=== PATIENT | female | born 1985 | race Caucasian/White ===

== ENCOUNTER 2019-11-28 08:35 | Outpatient (RCR) | payer BC, SELFPAY ==
[2019-10-25 09:55] VITALS: BP 126/75; PULSE 87
[2019-10-28 08:43] VITALS: BP 112/70; PULSE 106
[2019-10-31 09:00] VITALS: BP 100/72; PULSE 106
[2019-11-08 10:23] VITALS: BP 106/65; PULSE 96
[2019-11-14 07:53] VITALS: BP 112/69; PULSE 88
[2019-11-22 07:56] VITALS: BP 123/79; PULSE 98
--- NOTE | 2019-11-22 08:14 | PC.NURSE ---
BPP 03/17. patient has a doctors appointment this morning directly after US.
--- NOTE | ~2019-11-28 | US_ITS ---
US OB limited w BPP DATE: 11/28/2019 09:31 INDICATION: Gestational hypertension. Evaluate ONI and biophysical profile TECHNIQUE: Real-time and color flow imaging and Doppler analysis COMPARISON: 11/22/2019 limited obstetrical ultrasound with biophysical profile FINDINGS: Live kang intrauterine gestation, fetus in vertex presentation, longitudinal lie. Norm al amount of amniotic fluid. Amniotic fluid index measures 17.5 cm. (ONI 5th percentile: 7.5 cm; 95th percentile: 24.4 cm). Anterior placenta. BIOPHYSICAL PROFILE reported by golf technician: breathin out of 2 movement: 2 out of 2 tone: 2 out of 2 Amniotic fluid pocket: 2 out of 2 Total score: 8 out of 8 IMPRESSION: Normal biophysical profile score of 8 out of 8 Normal amniotic fluid index of 17.5 cm Reviewed, dictated and finalized at Location A. Reviewed, dictated and finalized at location A.
--- NOTE | ~2019-11-28 | US_ITS ---
EXAMINATION: US OB BPP wo non-stress DATE: 10/31/2019 09:31 CDT INDICATION: Gestational hypertension TECHNIQUE: Real-time transabdominal obstetric ultrasound. FINDINGS: No prior studies for comparison. There is a single living fetus in vertex presentation. The placenta is fundal/anterior without place nta previa. cardiac activity and movement is noted with a heart rate of 161 beats per minute. Biophysical profile: breathin of 2 movement: 2 of 2 tone: 2 of 2 Amniotic flud pocket: 2 of 2 Total score: 8 of 8 IMPRESSION: 1. Single living intrauterine in vertex presentation. 2: Total biophysical profile score of 8/8. Reviewed, dictated and finalized at location A.
--- NOTE | ~2019-11-28 | US_ITS ---
EXAMINATION: US OB limited w BPP DATE: 11/14/2019 08:21 INDICATION: Chronic hypertension. Third trimester. TECHNIQUE: Real-time pelvic ultrasound was performed. COMPARISON: Ultrasound 11/08/2019 FINDINGS: There is a single living fetus in breech presentation. The placenta is anterior. heart rate is 171 beats per minute (bpm). The amniotic fluid index is 16.6 cm, which is normal. Biophysical profile performed by the technologist: breathing (30 sec sustained breathing in 30 minutes): 2 out of 2 movement (3 gross body movements in 30 minutes): 2 out of 2 tone (one episode of egyigoo-qaftsycdq-bzeyayo limb movement): 2 out of 2 Amniotic fluid pocket (2 cm): 2 out of 2 Total score: 8 out of 8 IMPRESSION: 1. Single living fetus in breech presentation. 2. Biophysical profile 8 out of 8. Reviewed, dictated and finalized at location A.
--- NOTE | ~2019-11-28 | US_ITS ---
US OB limited w BPP DATE: 11/08/2019 10:05 INDICATION: Gestational hypertension TECHNIQUE: Routine imaging and Doppler analysis COMPARISON: 10/31/2019 obstetrical ultrasound with biophysical profile FINDINGS: Live single intrauterine gestation, fetus in vertex presentation, longitudinal lie. h eart rate of 142 bpm. Anterior placenta. Amniotic fluid index measures 16.6 cm, within normal range. (5th percentile ONI: 8.1 cm.) (95th percentile ONI: 24.8 cm) BIOPHYSICAL PROFILE reported by communications engineering technician: breathin out of 2 movement: 2 out of 2 tone: 2 out of 2 Amniotic fluid pocket: 2 out of 2 Total score: 8 out of 8 IMPRESSION: Normal biophysical profile score of 8 out of 8 Normal amniotic fluid index of 16.63 cm from Reviewed, dictated and finalized at Location A. Reviewed, dictated and finalized at location B.
--- NOTE | ~2019-11-28 | US_ITS ---
EXAMINATION: US OB limited w BPP DATE: 10/25/2019 10:18 INDICATION: Hypertension. Assess amniotic fluid index and biophysical profile. TECHNIQUE: Real-time pelvic ultrasound was performed. The interpreting radiologist was not present fo r the study. COMPARISON: 05/04/2019 FINDINGS: There is a single living fetus in vertex presentation. The placenta is anterior. heart rate is 145 beats per minute (bpm). Amniotic fluid index measures 8.5 cm which is between 2 and 3 standard d eviations below the mean (2.5th%: 7.7 cm, 5th%-95%: 8.6-24.2 cm at 32 weeks estimated gestational age ) Biophysical profile performed by the technologist: breathing (30 sec sustained breathing in 30 minutes): 2 out of 2 movement (3 gross body movements in 30 minutes): 2 out of 2 tone (one episode of fkqilrc-luizpgkbp-tybxjgs limb movement): 2 out of 2 Amniotic fluid pocket (2 cm): 2 out of 2 Total score: 8 out of 8 IMPRESSION: 1. Single living fetus in vertex presentation with heart rate of 145 bpm. 2. Biophysical profile 8 out of 8. 3. Amniotic fluid index of 8.5 cm which is between 2 and 3 standard deviations below the mean. Correl ate for leaking fluids. Reviewed, dictated and finalized at location A. IMPRESSION: 1. Single living fetus in vertex presentation with heart rate of 145 bpm. 2. Biophysical profile 8 out of 8. 3. Amniotic fluid index of 8.5 cm which is between 2 and 3 standard deviations below the mean. Correlate for leaking fluids.
--- NOTE | ~2019-11-28 | US_ITS ---
EXAMINATION: US OB limited w BPP DATE: 11/22/2019 08:25 INDICATION: Chronic hypertension, third trimester TECHNIQUE: Real-time pelvic ultrasound was performed. The interpreting radiologist was not present fo r the study. COMPARISON: 11/14/2019 FINDINGS: There is a single living fetus in breech presentation. The placenta is anterior. heart rate is 144 beats per minute (bpm). The amniotic fluid index is 16.7 cm which is normal Biophysical profile performed by the technologist: breathing (30 sec sustained breathing in 30 minutes): 2 out of 2 movement (3 gross body movements in 30 minutes): 2 out of 2 tone (one episode of jkswkat-qsrwikzku-iyqkgvs limb movement): 2 out of 2 Amniotic fluid pocket (2 cm): 2 out of 2 Total score: 8 out of 8 IMPRESSION: 1. Single living fetus in breech presentation. 2. Biophysical profile 8 out of 8. 3. Normal amniotic fluid index. Reviewed, dictated and finalized at location B.
[2019-11-28 09:09] VITALS: BP 113/76; PULSE 92
== END 2019-12-12 08:54 | disposition home or self-care (01) ==
LOC: ANHOBOP 08:35
PROVIDERS: PCP Internal Medicine; Visit Provider Obstetrics & Gynecology
DX: O16.3 Unspecified maternal hypertension, third trimester (principal); Z3A.32 32 weeks gestation of pregnancy; Z3A.33 33 weeks gestation of pregnancy; Z3A.34 34 weeks gestation of pregnancy; Z3A.35 35 weeks gestation of pregnancy; Z3A.36 36 weeks gestation of pregnancy; Z3A.37 37 weeks gestation of pregnancy
CPT/HCPCS: 59025; 76815; 76819

== ENCOUNTER 2019-12-05 17:57 | Inpatient (IN) | payer BC, SELFPAY ==
[2019-12-05] VITALS (14 sets, daily range): BP systolic 110–137; BP diastolic 67–92; PULSE 72–96; TEMP 36.8; BMI 38.7
[2019-12-05] MEDS: DINOPROSTONE 10 MG VAG INSERT VAGINAL (19:32)
[2019-12-05 19:49] LABS: Basophils Percent Auto 0.3 % (0.2-1.2); Eosinophils Absolute Auto 0.1 K/mm3 (0-0.3); Eosinophils Percent Auto 1.4 % (0-4.4); Hematocrit 33.2 % (37.0-47.0); Hemoglobin 10.5 g/dL (12.0-15.0); Immature Granulocyte Absolute 0.04 K/mm3 (0.00-0.031); Immature Granulocyte Percent A 0.4 % (0-0.5); Lymphocytes Absolute Auto 1.91 K/mm3 (0.9-3.2); Lymphocytes Percent Auto 20.6 % (18.3-44.2); Mean Corpuscular HGB Conc 31.6 g/dl (32-36); Mean Corpuscular Hemoglobin 25.2 pg (26-34); Mean Corpuscular Volume 79.6 fl (80-100); Mean Platelet Volume 11.1 fl (7.4-10.4); Monocytes Absolute Auto 0.5 K/mm3 (0.1-0.6); Monocytes Percent Auto 5.1 % (2.6-8.5); Neutrophils Absolute Auto 6.7 K/mm3 (1.3-6.7); Neutrophils Percent Auto 72.2 % (45.5-73.1); Platelet Count Result 234 k/mm3 (150-375); Red Blood Count 4.17 M/mm3 (4.2-5.4); Red Cell Distribution Width 13.3 % (11.5-14.5); White Blood Count 9.3 K/mm3 (4.5-10.0)
[2019-12-05 20:42] LABS: HIV 1/2 Ab P24 Ag Result Negative (Negative)
--- NOTE | 2019-12-05 20:46 | LDADM ---
This patient, Sejal Lopez, was admitted to Labor/Delivery/Recovery 109 on 12/05/19 at 17:57. Plans for labor, pain management and were discussed with patient. Patient/family oriented to hospital policies and general routines including ID bracelet, bed and alarms, visiting hours, pain management, procedures, bathroom and other care routines, personal items, smoking policy, room service/diet and guest tray routines, security routines, and visiting hours. Patient/Family are encouraged to report perceived risks to care and to ask questions if they do not understand what they are told or what they should do. See OBIX for further documentation.
[2019-12-05 21:23] LABS: Hepatitis B Surface Antigen Negative (Negative)
--- NOTE | 2019-12-05 21:33 | WPDANESEPP ---
Anes - Eval Pre Procedure Procedure: LAbor epidural Date/Time: 12/05/19 21:33 Surgeon: Abdominal pain with contractions Pre Op Diagnosis: Induction of Labor Patient Data Age: 34 Gender: F Height: 5 ft 6 in Weight: 109 kg Last Vital Signs Temp 98.3 F 12/05/19 21:16 Pulse 76 12/05/19 21:31 BP 122/74 12/05/19 21:31 Allergies Allergy/AdvReac Type Severity Reaction Status Date / Time PCN Allergy Unknown AN Uncoded 05/24/13 14:55 INFANT Home Medications Medication Instructions Recorded Confirmed Type vits 75-iron 28 mg-folic pkg PO 06/28/19 10/14/19 History acid 800 mcg-omega3 440 mg oral pack calcium carbonate 600 mg (1,500 cap PO 10/14/19 10/14/19 History mg)-vitamin D3 500 unit capsule labetalol 100 mg tablet 100 mg PO Q12H #180 tablet 10/14/19 10/14/19 Rx cholecalciferol (vitamin D3) 25 mcg PO DAILY 11/19/19 11/19/19 History [Vitamin D3] Laboratory Tests 12/05/19 12/05/19 12/05/19 19:41 19:41 19:41 WBC 9.3 K/mm3 K/mm3 (4.5-10.0) RBC 4.17 M/mm3 L M/mm3 (4.2-5.4) Hgb 10.5 g/dL L g/dL (12.0-15.0) Hct 33.2 % L % (37.0-47.0) MCV 79.6 fl L fl (80-100) MCH 25.2 pg L pg (26-34) MCHC 31.6 g/dl L g/dl (32-36) RDW 13.3 % % (11.5-14.5) Plt Count 234 k/mm3 k/mm3 (150-375) MPV 11.1 fl H fl (7.4-10.4) Immature Gran % (Auto) 0.4 % % (0-0.5) Neut % (Auto) 72.2 % % (45.5-73.1) Lymph % (Auto) 20.6 % % (18.3-44.2) [place] % (Auto) 5.1 % % (2.6-8.5) Eos % (Auto) 1.4 % % (0-4.4) Baso % (Auto) 0.3 % % (0.2-1.2) Lymph # (Auto) 1.91 K/mm3 K/mm3 (0.9-3.2) [place] # (Auto) 0.5 K/mm3 K/mm3 (0.1-0.6) Eos # (Auto) 0.1 K/mm3 K/mm3 (0-0.3) Baso # (Auto) 0.0 K/mm3 K/mm3 (0.0-0.1) Abs Immat Gran (auto) 0.04 K/mm3 H K/mm3 (0.00-0.031) Absolute Neuts (auto) 6.7 K/mm3 K/mm3 (1.3-6.7) Absolute Nucleated RBC 0.0 K/mm3 K/mm3 (0.0-0.012) Nucleated RBC % 0.0 % % (0.0-0.2) RPR Pending Hep Bs Antigen HIV 1&2 Ab/P24 Ag 4thGn Negative (Negative) Blood Type Antibody Screen 12/05/19 12/05/19 19:41 19:42 WBC RBC Hgb Hct MCV MCH MCHC RDW Plt Count MPV Immature Gran % (Auto) Neut % (Auto) Lymph % (Auto) [place] % (Auto) Eos % (Auto) Baso % (Auto) Lymph # (Auto) [place] # (Auto) Eos # (Auto) Baso # (Auto) Abs Immat Gran (auto) Absolute Neuts (auto) Absolute Nucleated RBC Nucleated RBC % RPR Hep Bs Antigen Negative (Negative) HIV 1&2 Ab/P24 Ag 4thGn Blood Type O Positive Antibody Screen Negative Patient hx anesthesia problems: none Family hx anesthesia problems: none PMFSH Past Medical History Medical History Acid reflux HPV (human papilloma virus) anogenital infection Hypertension Hypertension affecting in third trimester Surgical History Surgical History H/O LEEP [place] teeth removed Family History Family History Grandparent Diabetes mellitus Hypertension Cerebrovascular accident Family history of lung cancer Family history of Hodgkin's lymphoma Mother Hypertension Other Family history of malignant neoplasm of breast Social History Social History Smoking status: Never smoker Second hand tobacco smoke exposure: No Alcohol intake: former [place]
[2019-12-06] VITALS (53 sets, daily range): BP systolic 61–138; BP diastolic 19–93; PULSE 42–90; RESP 12–19; TEMP 36.4–37.2; O2SAT 94–99
[2019-12-06 07:30] LABS: Rapid Plasma Reagin Non-Reactive (NonReactive)
[2019-12-06] MEDS: VALACYCLOVIR HCL 500 MG TABLET 2000 MG PO ×2 (08:11→21:03)
[2019-12-06] MEDS: LABETALOL HCL 100 MG TABLET PO ×2 (08:13→21:06)
--- NOTE | 2019-12-06 09:52 | PM.IMHP ---
H&P: HPI History of Present Illness Chief complaint: Induction of Labor Narrative: Sejal Lopez is a 34 year old female at 38 weeks by LMP. EDC 12/19/19. Presents for induction of labor due to chronic hypertension. LMP 03/14/19 EDC 12/19/19 U/S on 05/04/20 - [id number]- EDC 12/24/19. PNC significant for chronic hypertension well controlled with Labetalol 100mg q 12. Has not had medication changed during . She has reassuring surveillance. She denies headache, scotomata or RUQ pain. OB labs: O+, h/h-, CF-neg, UA-neg, HIV neg, HepBSag-neg, Clark-Im, TSH-nl, Rub-Imm, Vit D 25, HepCab- neg, GBS neg, initial 24 hr urine- 174mg, Materna 21- nl, Hgbelec- nl, glucola-135, normal 3 hour, third trimester HIV neg. Review of Systems Review of Systems: All systems reviewed & are unremarkable except as noted in HPI and below Constitutional: Constitutional: Reports no additional constitutional complaints and Denies headache(s) Eyes: Eyes: Denies spots in vision ENT: Reports system reviewed and no additional complaints, except as documented and Denies headache(s) Cardiovascular: Cardiovascular: Denies chest pain and Denies dyspnea Respiratory: Respiratory: Denies dyspnea Gastrointestinal: Gastrointestinal: Reports no additional gastrointestinal complaints Genitourinary: Genitourinary: Reports amenorrhea Musculoskeletal: Musculoskeletal: Reports no additional musculoskeletal complaints Integumentary/Breasts: Skin/Breast: Denies breast mass and Denies rash Neurologic: Denies headache(s) Psychiatric: Psychiatric: Reports no additional psychiatric complaints [facility] Past Medical History Medical History Acid reflux Chronic hypertension in obstetric context in third trimester History of induction of labor HPV (human papilloma virus) anogenital infection Hypertension Hypertension affecting in third trimester Surgical History Surgical History H/O LEEP [place] teeth removed Family History Family History Grandparent Diabetes mellitus Hypertension Cerebrovascular accident Family history of lung cancer Family history of Hodgkin's lymphoma Mother Hypertension Other Family history of malignant neoplasm of breast Social History Social History Smoking status: Never smoker Second hand tobacco smoke exposure: No Alcohol intake: former Substance use: never Spiritual care concerns: No Meds Home Medications and Allergies Home Medications Medication Instructions Recorded Confirmed Type vits 75-iron 28 mg-folic pkg PO 06/28/19 10/14/19 History acid 800 mcg-omega3 440 mg oral pack calcium carbonate 600 mg (1,500 cap PO 10/14/19 10/14/19 History mg)-vitamin D3 500 unit capsule labetalol 100 mg tablet 100 mg PO Q12H #180 tablet 10/14/19 10/14/19 Rx cholecalciferol (vitamin D3) 25 mcg PO DAILY 11/19/19 11/19/19 History [Vitamin D3] Allergies Allergy/AdvReac Type Severity Reaction Status Date / Time PCN Allergy Unknown AN Uncoded 05/24/13 14:55 INFANT Vital Signs Vital Signs - 24 hr 12/05/19 18:27 12/05/19 18:30 12/05/19 18:46 Temperature Pulse Rate 91 89 83 Blood Pressure 123/86 134/80 120/67 12/05/19 19:00 12/05/19 19:15 12/05/19 19:30 Temperature Pulse Rate 96 92 80 Blood Pressure 127/82 132/81 131/87 12/05/19 19:46 12/05/19 20:01 12/05/19 20:16 Temperature Pulse Rate 89 74 89 Blood Pressure 134/79 137/75 134/80 12/05/19 20:31 12/05/19 20:46 12/05/19 21:01 Temperature Pulse Rate 81 88 75 Blood Pressure 131/71 110/92 H 123/73 12/05/19 21:16 12/05/19 21:31 12/06/19 01:18 Temperature 98.3 F Pulse Rate 72 76 86 Blood Pressure 127/70 122/74 121/68 12/06/19 05:10 12/06/19 07:45 12/05
--- NOTE | 2019-12-06 10:06 | PM.OBPNVD ---
OB - PN: Subj Subjective Date/time seen: 12/06/19 10:06 tracing Cat 1. Cervix closed thick. Presenting part not palpated. Bedside ultrasound confirmed breech. She was informed of option of external cephalic version, the method, risk benefits then if successful then induction which may take several days and risk of fetus turing back breech. Risk of failure to progress in labor and risk of cesearean. Risk of cesearean section delivery discussed. She desires primary cesearean section for breech presentation. OB - PN: Obj Data Labs CBC & Chem 7: 12/05/19 19:41 Labs: Laboratory Results - last 24 hr 12/05/19 12/05/19 12/05/19 19:41 19:41 19:41 WBC 9.3 RBC 4.17 L Hgb 10.5 L Hct 33.2 L MCV 79.6 L MCH 25.2 L MCHC 31.6 L RDW 13.3 Plt Count 234 MPV 11.1 H Immature Gran % (Auto) 0.4 Neut % (Auto) 72.2 Lymph % (Auto) 20.6 [place] % (Auto) 5.1 Eos % (Auto) 1.4 Baso % (Auto) 0.3 Lymph # (Auto) 1.91 [place] # (Auto) 0.5 Eos # (Auto) 0.1 Baso # (Auto) 0.0 Abs Immat Gran (auto) 0.04 H Absolute Neuts (auto) 6.7 Absolute Nucleated RBC 0.0 Nucleated RBC % 0.0 RPR Non-reactive Hep Bs Antigen HIV 1&2 Ab/P24 Ag 4thGn Negative Blood Type Antibody Screen 12/05/19 12/05/19 19:41 19:42 WBC RBC Hgb Hct MCV MCH MCHC RDW Plt Count MPV Immature Gran % (Auto) Neut % (Auto) Lymph % (Auto) [place] % (Auto) Eos % (Auto) Baso % (Auto) Lymph # (Auto) [place] # (Auto) Eos # (Auto) Baso # (Auto) Abs Immat Gran (auto) Absolute Neuts (auto) Absolute Nucleated RBC Nucleated RBC % RPR Hep Bs Antigen Negative HIV 1&2 Ab/P24 Ag 4thGn Blood Type O Positive Antibody Screen Negative OB - PN A/P Time Spent With Patient Time: Total time spent is greater than 50% in coordination of care (as documented) at patient's floor/unit and/or counseling patient:
[2019-12-06] MEDS: LACTATED RINGERS 1,000 ML 125 ML IV CONT (10:11)
--- NOTE | 2019-12-06 10:56 | WPDANESEPPF ---
Anes - Initial Pre Proc Eval Date/Time: 12/06/19 10:56 Surgeon: Leon Mistry MD Pre Op Diagnosis: Induction of Labor Patient Data Age: 34 Gender: F Height: 5 ft 6 in Weight: 109 kg Last Vital Signs Temp 36.4 C 12/06/19 07:45 Pulse 81 12/06/19 08:46 BP 127/88 12/06/19 08:46 Allergies Allergy/AdvReac Type Severity Reaction Status Date / Time PCN Allergy Unknown AN Uncoded 05/24/13 14:55 Home Medications Medication Instructions Recorded Confirmed Type vits 75-iron 28 mg-folic pkg PO 06/28/19 10/14/19 History acid 800 mcg-omega3 440 mg oral pack calcium carbonate 600 mg (1,500 cap PO 10/14/19 10/14/19 History mg)-vitamin D3 500 unit capsule labetalol 100 mg tablet 100 mg PO Q12H #180 tablet 10/14/19 10/14/19 Rx cholecalciferol (vitamin D3) 25 mcg PO DAILY 11/19/19 11/19/19 History [Vitamin D3] Laboratory Tests 12/05/19 12/05/19 12/05/19 19:41 19:41 19:41 WBC 9.3 K/mm3 K/mm3 (4.5-10.0) RBC 4.17 M/mm3 L M/mm3 (4.2-5.4) Hgb 10.5 g/dL L g/dL (12.0-15.0) Hct 33.2 % L % (37.0-47.0) MCV 79.6 fl L fl (80-100) MCH 25.2 pg L pg (26-34) MCHC 31.6 g/dl L g/dl (32-36) RDW 13.3 % % (11.5-14.5) Plt Count 234 k/mm3 k/mm3 (150-375) MPV 11.1 fl H fl (7.4-10.4) Immature Gran % (Auto) 0.4 % % (0-0.5) Neut % (Auto) 72.2 % % (45.5-73.1) Lymph % (Auto) 20.6 % % (18.3-44.2) [place] % (Auto) 5.1 % % (2.6-8.5) Eos % (Auto) 1.4 % % (0-4.4) Baso % (Auto) 0.3 % % (0.2-1.2) Lymph # (Auto) 1.91 K/mm3 K/mm3 (0.9-3.2) [place] # (Auto) 0.5 K/mm3 K/mm3 (0.1-0.6) Eos # (Auto) 0.1 K/mm3 K/mm3 (0-0.3) Baso # (Auto) 0.0 K/mm3 K/mm3 (0.0-0.1) Abs Immat Gran (auto) 0.04 K/mm3 H K/mm3 (0.00-0.031) Absolute Neuts (auto) 6.7 K/mm3 K/mm3 (1.3-6.7) Absolute Nucleated RBC 0.0 K/mm3 K/mm3 (0.0-0.012) Nucleated RBC % 0.0 % % (0.0-0.2) RPR Non-reactive (NonReactive) Hep Bs Antigen HIV 1&2 Ab/P24 Ag 4thGn Negative (Negative) Blood Type Antibody Screen 12/05/19 12/05/19 19:41 19:42 WBC RBC Hgb Hct MCV MCH MCHC RDW Plt Count MPV Immature Gran % (Auto) Neut % (Auto) Lymph % (Auto) [place] % (Auto) Eos % (Auto) Baso % (Auto) Lymph # (Auto) [place] # (Auto) Eos # (Auto) Baso # (Auto) Abs Immat Gran (auto) Absolute Neuts (auto) Absolute Nucleated RBC Nucleated RBC % RPR Hep Bs Antigen Negative (Negative) HIV 1&2 Ab/P24 Ag 4thGn Blood Type O Positive Antibody Screen Negative Patient hx anesthesia problems: none Family hx anesthesia problems: none PMFSH Past Medical History Medical History Acid reflux Chronic hypertension in obstetric context in third trimester History of induction of labor HPV (human papilloma virus) anogenital infection Hypertension Hypertension affecting in third trimester Surgical History Surgical History H/O LEEP [place] teeth removed Family History Family History Grandparent Diabetes mellitus Hypertension Cerebrovascular accident Family history of lung cancer Family history of Hodgkin's lymphoma Mother Hypertension Other Family history of malignant neoplasm of breast Social History Social History Smoking statu
--- NOTE | 2019-12-06 12:50 | P.PNOB_ITS ---
OB - PN: Subj Subjective Date/time seen: 12/06/19 OB - PN: Obj Data Labs CBC & Chem 7: 12/05/19 19:41 Labs: Laboratory Results - last 24 hr 12/05/19 12/05/19 12/05/19 19:41 19:41 19:41 WBC 9.3 RBC 4.17 L Hgb 10.5 L Hct 33.2 L MCV 79.6 L MCH 25.2 L MCHC 31.6 L RDW 13.3 Plt Count 234 MPV 11.1 H Immature Gran % (Auto) 0.4 Neut % (Auto) 72.2 Lymph % (Auto) 20.6 [place] % (Auto) 5.1 Eos % (Auto) 1.4 Baso % (Auto) 0.3 Lymph # (Auto) 1.91 [place] # (Auto) 0.5 Eos # (Auto) 0.1 Baso # (Auto) 0.0 Abs Immat Gran (auto) 0.04 H Absolute Neuts (auto) 6.7 Absolute Nucleated RBC 0.0 Nucleated RBC % 0.0 RPR Non-reactive Hep Bs Antigen HIV 1&2 Ab/P24 Ag 4thGn Negative Blood Type Antibody Screen 12/05/19 12/05/19 19:41 19:42 WBC RBC Hgb Hct MCV MCH MCHC RDW Plt Count MPV Immature Gran % (Auto) Neut % (Auto) Lymph % (Auto) [place] % (Auto) Eos % (Auto) Baso % (Auto) Lymph # (Auto) [place] # (Auto) Eos # (Auto) Baso # (Auto) Abs Immat Gran (auto) Absolute Neuts (auto) Absolute Nucleated RBC Nucleated RBC % RPR Hep Bs Antigen Negative HIV 1&2 Ab/P24 Ag 4thGn Blood Type O Positive Antibody Screen Negative OB - PN A/P Time Spent With Patient Time: Total time spent is greater than 50% in coordination of care (as documented) at patient's floor/unit and/or counseling patient:
--- NOTE | 2019-12-06 12:52 | PM.PROC ---
Procedure Note - Detailed Date of procedure: 12/06/19 Pre-op diagnosis: Induction of Labor Post-op diagnosis: same Procedure performed: Primary low transverse cesearean section. Primary diagnosis 1. Breech presentation 2. Chronic hypertension. Description of procedure: After informed consent was obtained patient was taken to the operating room and adequate spinal anesthesia was administered. She was placed in supine position and prepped and draped in sterile fashion. heart tones were auscultated prior to a drape. Attention was turned to the abdomen and a Pfannenstiel skin incision was made. The subcutaneous tissue was dissected with scalpel and cautery. The fascia was incised in the midline and extended bilaterally. The fascia was from rectus muscle superiorly and inferiorly bluntly and sharply. The midline was identified the midline was entered bluntly. The pelvic organs were visualized. The lower uterine segment and vesico-uterine peritoneum was visualized. The bladder was dissected from the lower uterine segment. A bladder flap was made. A low-transverse uterine incision was made and was extended bluntly. The amniotic cavity was entered. A large amount of clear fluid was noted. The feet were presented and grasped and the legs were delivered, the arms were then delivered in pinard fashion. Loose nuchal cord manually reduced and infants head was delivered in flexed position. The infant was vigorously crying upon delivery. The cord was doubly clamped and cut and the was handed to nursery staff in attendance. Cord segment was obtained for cord gases. Cord blood was obtained. The placenta was removed manually. The uterine cavity was sponge curetted. The uterus was noted to have good tone. The uterus was exteriorized the incision of the uterus was closed in a running locking fashion with 0 Vicryl and a 2nd umbricating stitch of 0 Vicryl. Hemostasis was noted. The posterior cul-de-sac was irrigated. Uterus was placed back into the abdomen. The paracolic gutters were irrigated the uterine incision was inspected again and noted to be hemostatic. Interceed adhesion barrier was placed at the lower uterine segment and anterior uterus. There was good approximation of the muscles midline. The fascia was closed in a running fashion with 0 Vicryl with 2 sutures. The subcutaneous tissue was irrigated. Hemostasis obtained with cautery. The skin incision was closed with 4 O Vicryl on a Jay needle. Dermabond was placed. Hemostasis was noted. The uterus was firm at -1 umbilicus. The QBL was 875cc. Sponge count was correct x3. The patient tolerated procedure well and was taken to recovery in stable condition. Anesthesia: spinal Surgeon: Leon Mistry MD Estimated blood loss (mL): 875 Drains: No Packing: No Pathology: none sent Complications: No immediate complications Condition: stable Disposition: floor (Recovery)
[2019-12-06] MEDS: MORPHINE SULFATE 2 MG/ML INJ 3 MG IV PUSH (13:23)
[2019-12-06] MEDS: OXYTOCIN 30 UNITS/NS 500 ML 30 UNITS/500 ML BAG 125 UNITS IV CONT (13:24)
[2019-12-06] MEDS: KETOROLAC 30 MG/ML VIAL (*BKC) IV PUSH (14:08)
[2019-12-06] MEDS: DEXTROSE 5%/0.45% SOD CHL 1,000 ML 125 ML IV CONT (18:44)
--- NOTE | 2019-12-06 19:20 | OBPPTRN ---
Patient transferred to post room # 281 via stretcher. Support person present. Oriented to unit, room, information board, rooming in, admission packet and security measures. Patient verbalizes understanding.
[2019-12-06] MEDS: IBUPROFEN 600 MG TABLET PO (21:54)
[2019-12-07] VITALS (7 sets, daily range): BP systolic 101–127; BP diastolic 55–69; PULSE 56–68; RESP 12–18; TEMP 36.6–37; O2SAT 96–99
[2019-12-07] MEDS: DEXTROSE 5%/0.45% SOD CHL 1,000 ML 125 ML IV CONT (03:00)
[2019-12-07] MEDS: IBUPROFEN 600 MG TABLET PO ×3 (05:12→19:46)
[2019-12-07 06:12] LABS: Basophils Percent Auto 0.2 % (0.2-1.2); Eosinophils Percent Auto 0.1 % (0-4.4); Hematocrit 29.7 % (37.0-47.0); Hemoglobin 9.4 g/dL (12.0-15.0); Immature Granulocyte Absolute 0.07 K/mm3 (0.00-0.031); Immature Granulocyte Percent A 0.5 % (0-0.5); Lymphocytes Absolute Auto 1.77 K/mm3 (0.9-3.2); Lymphocytes Percent Auto 12.7 % (18.3-44.2); Mean Corpuscular HGB Conc 31.6 g/dl (32-36); Mean Corpuscular Hemoglobin 25.2 pg (26-34); Mean Corpuscular Volume 79.6 fl (80-100); Mean Platelet Volume 11.6 fl (7.4-10.4); Monocytes Absolute Auto 0.8 K/mm3 (0.1-0.6); Monocytes Percent Auto 5.5 % (2.6-8.5); Neutrophils Absolute Auto 11.3 K/mm3 (1.3-6.7); Platelet Count Result 229 k/mm3 (150-375); Red Blood Count 3.73 M/mm3 (4.2-5.4); White Blood Count 13.9 K/mm3 (4.5-10.0)
--- NOTE | 2019-12-07 08:00 | PC.NURSE ---
PT introductions made and plan of care discussed per post op c section, pain management, breast feeding, daily care activities. PT verbalized understanding of such care.
[2019-12-07] MEDS: SIMETHICONE 80 MG TAB.CHEW PO ×3 (08:35→16:51)
[2019-12-07] MEDS: POLYSACCHARIDE IRON COMPLEX 150 MG CAPSULE PO ×2 (08:36→16:51)
[2019-12-07] MEDS: DOCUSATE SODIUM 100 MG CAPSULE PO ×2 (08:36→16:51)
[2019-12-07] MEDS: MULTIVIT/MIN/PREN/FOL AC/IRON TABLET 1 TAB PO (08:36)
[2019-12-07] MEDS: LABETALOL HCL 100 MG TABLET PO (08:36)
--- NOTE | 2019-12-07 08:51 | P.PNOB_ITS ---
OB - PN: Subj Subjective Date/time seen: 12/07/19 08:51 She reports adequate pain control. She has ambulated to restroom. Did well. No lightheadedness or dizziness. Positive flatus. No leg pain. . OB - PN: Obj Data Labs CBC & Chem 7: 12/07/19 05:09 Labs: Laboratory Results - last 24 hr 12/07/19 05:09 WBC 13.9 H RBC 3.73 L Hgb 9.4 L Hct 29.7 L MCV 79.6 L MCH 25.2 L MCHC 31.6 L RDW 13.0 Plt Count 229 MPV 11.6 H Immature Gran % (Auto) 0.5 Neut % (Auto) 81.0 H Lymph % (Auto) 12.7 L Spencer % (Auto) 5.5 Eos % (Auto) 0.1 Baso % (Auto) 0.2 Lymph # (Auto) 1.77 Spencer # (Auto) 0.8 H Eos # (Auto) 0.0 Baso # (Auto) 0.0 Abs Immat Gran (auto) 0.07 H Absolute Neuts (auto) 11.3 H Absolute Nucleated RBC 0.0 Nucleated RBC % 0.0 OB - PN A/P Assessment and Plan (1) Status post section: Code(s): Z98.891 - History of uterine scar from previous surgery Status: Acute Assessment and Plan: POD1. Doing well. Routine post op care. Time Spent With Patient Time: Total time spent is greater than 50% in coordination of care (as documented) at patient's floor/unit and/or counseling patient: Exam Const: General: comfortable and no acute distress Resp: Effort & Inspection: normal respiratory effort Auscultation: clear to auscultation bilaterally Cardio: Rate: regular rate GI: Other: decreased bowel sounds, mildly distended, incision no drainage or erythema, intact, fundus firm appropriate tender, -2umb. Psych: Mental Status: mental status grossly normal Affect: normal affect
--- NOTE | 2019-12-07 09:00 | PC.NURSE ---
Consulted with patient, mother reports infant was up and fussy during the night. Mother states she is unsure if has a correct latch, both nipples are sore during nursing and nipple was misshaped when released latch. Reviewed feeding cues, frequencies, duration of feedings, feeding elimination flow sheet, and signs of adequate intake. Demonstrated stimulation techniques to wake infant for feeding. Assisted with to breast. Reviewed positioning/alignment in cross cradle, holding breast in U hold and guided asymmetrical latch on. Discussed rational for each. was unable to latch correctly. made several eager attempts without a successful latch. Attempt for 15 minutes. Offered and explained a nipple shield. Mother is willing to attempt latch using shield. Discussed nipple shield precautions and possible complications. Instructions given on application and cleaning of shield. Patient able to return demonstration on proper application of shield. Discussed the need to initiate pumping if infant continues to nurse with the shield. Patient verbalizes understanding. With shield in place, infant was able to latch deeply. Reviewed signs of a correct latch, effective nursing and suck swallow ratio. nursed eagerly with steady draws for short bursts followed with long pausing. Infant was able to maintain latch without discomfort to mother. Nipple care reviewed. Advised to stimulate to keep awake and nursing for increased intake and stimulation of milk supply. Small amount of colostrum noted to shield. Parents are concerned with infant feeding states and have questioned supplementation, reviewed it is parents choice at this time. Infant is WNL for output, weight and jaundice. Parents wish to have infant supplemented. Instructed mother to call out for RN assistance if she is unable to latch for feeding or she has discomfort with nursing. Instructed feeding should be initiated three hours from start of last feeding or if feeding cues are noted before. Mother voiced understanding of information shared.
--- NOTE | 2019-12-07 11:16 | WPDANLDPN2 ---
Anes-Prog Note L&D Date/Time: 12/07/19 11:16 Comfortable throughout: section Neuraxial method: spinal Epidural/Spinal procedure site: clean & non-tender Neuro status: Neuro function grossly intact. Cardiovascular status: normal Respiratory status: normal Airway patency: baseline Mental status: baseline Post-Op hydration status: normal Vital Signs: Last Vital Signs Temp 36.8 C 12/07/19 08:40 Pulse 68 12/07/19 10:30 Resp 18 12/07/19 10:30 BP 123/68 12/07/19 10:30 Pulse Ox 97 12/07/19 10:30 Pain score (VAS): 0/10. Patient resting in bed at time of assessment, appears comfortable. Support person at bedside. I/O: Intake & Output 12/06/19 12/07/19 12/07/19 23:59 07:59 15:59 Intake Total 800 2100 Output Total 150 2000 275 Balance 650 100 -275 Post-procedural complaints: none Patient feedback: Patient satisfied with anesthetic care.
--- NOTE | 2019-12-07 11:17 | WPDANLDNPN2 ---
Anes-Prog Note L&D-Neuraxial Date/Time: 12/07/19 11:17 Neuraxial medications: intrathecal PF morphine Opiod-related complaints: none Patient feedback: Patient satisfied with post-operative pain management.
--- NOTE | 2019-12-07 13:00 | PC.NURSE ---
Mother called out for assist with feeding. Demonstrated stimulation techniques to wake for feeding. Assisted with to breast. Reviewed positioning/alignment in cross cradle, holding breast in U hold and guided asymmetrical latch on. Discussed rational for each. Infant was unable to latch correctly using nipple shield. Discussed the need to initiate pumping if infant continues to nurse with the shield. Patient verbalizes understanding. With shield in place, was able to latch deeply. Reviewed signs of a correct latch, effective nursing and suck swallow ratio. Infant nursed eagerly with steady draws for short bursts followed with long pausing. Infant was able to maintain latch without discomfort to mother. Nipple care reviewed. Advised to stimulate to keep infant awake and nursing for increased intake and stimulation of milk supply. Small amount of colostrum noted to shield.
--- NOTE | 2019-12-07 13:45 | PC.NURSE ---
Breast pump provided due to ineffective feeding/nipple shield use. Instructions given on breast pump care and usage, pumping schedule, nipple care, and collection and storage of breast milk. Encouraged [id number], breast massage and manual expression to stimulate supply. Assessed patient for correct flange size, placement and draw. Patient verbalizes and demonstrates understanding of instructions.
[2019-12-07] MEDS: ACETAMINOPHEN 325 MG TABLET 650 MG PO (16:51)
--- NOTE | 2019-12-07 20:31 | PC.NURSE ---
2020 Dr Mistry notified of Pt's BP 0f 101/55. Orders received to hold Pm dose of Labetalol .
[2019-12-08] MEDS: IBUPROFEN 600 MG TABLET PO (05:04)
[2019-12-08 08:05] VITALS: BP 128/82; PULSE 77; RESP 18; TEMP 37.2; O2SAT 96
[2019-12-08 09:54] VITALS: PULSE 88
[2019-12-08] MEDS: DOCUSATE SODIUM 100 MG CAPSULE PO (09:54)
[2019-12-08] MEDS: MULTIVIT/MIN/PREN/FOL AC/IRON TABLET 1 TAB PO (09:54)
[2019-12-08] MEDS: POLYSACCHARIDE IRON COMPLEX 150 MG CAPSULE PO (09:54)
[2019-12-08] MEDS: LABETALOL HCL 100 MG TABLET PO (09:54)
--- NOTE | 2019-12-08 10:15 | PC.NURSE ---
Consult with pt., mother reports infant is more awake and eager to latch. Mother continues to use shield for each feeding, she will then supplement and pump. Mother is able to independently latch infant with appropriate positioning/alignment using nipple shield. She denies any nipple discomfort, is feeding as required and waking infant to feed if needed. Infant continues with ineffective feeding and requires 25-30 mls supplementation after each . is more eager with attempts and duration. Mother will continue to pump and offer EBM as available as part of supplement. Discussed when how to recognize is ready to begin weaning from supplementation. Mother understands to continue to pump if infant is nursing with shield until her milk is established and infant is able to gain appropriate fernie without supplementation. Infant is currently meeting outcomes for weight, output, jaundice and feeding frequencies. Mother states she feels comfortable with current feeding plan of bottle/ at home. Reviewed transition to breast milk, signs of adequate intake, and engorgement/relief. Instructed to call ICP if intake/output less than required. Reviewed regular medications mother is taking. Information provided per She[place]. Reviewed community resources on the [facility] website and in the Mom/Baby guide. Information on outpatient services provided, requested mother call at 1 week if continues to require supplementation and using the nipple shield. Mother has no further questions at this time.
--- NOTE | 2019-12-08 13:51 | PM.OBPNVD ---
OB - PN: Subj Subjective Date/time seen: 12/08/19 0820 Has ambulated in room. Patient comments: pain well controlled, tolerating diet and other (Decreasing lochia.) [place] baby status: doing well OB - PN: Obj Data Labs CBC & Chem 7: 12/07/19 05:09 OB - PN A/P Plan Plan: routine care Comments: Patient doing well. She desires discharge. Will discharge home. Discharge precautions discussed. Time Spent With Patient Time: Total time spent is greater than 50% in coordination of care (as documented) at patient's floor/unit and/or counseling patient: Review of Systems Review of Systems: All systems reviewed & are unremarkable except as noted in HPI and below Constitutional: Constitutional: Reports no additional constitutional complaints Cardiovascular: Cardiovascular: Denies dyspnea Respiratory: Respiratory: Denies dyspnea Gastrointestinal: Gastrointestinal: Reports no additional gastrointestinal complaints and Denies abdominal pain Genitourinary: Genitourinary: Reports no additional female genitourinary complaints Exam Const: General: comfortable and no acute distress Resp: Effort & Inspection: normal respiratory effort GI: Other: Fundus nontender, below umbilicus Psych: Appearance: grossly normal Mental Status: mental status grossly normal Affect: normal affect Other: Abd: fundus firm below umbilicus, nontender Incision- intact, no drainage or erythema Ext: nontender
[2019-12-09 08:43] VITALS: BP 128/85; PULSE 83; RESP 16; TEMP 37.3; O2SAT 97
--- NOTE | 2020-01-13 12:02 | PM.OBDSVD ---
DS: Admitting Diagnosis Admitting Diagnosis Admitting Diagnosis: Encounter for supervision of normal , unspecified, third trimester DS: Discharge Diagnosis Discharge Diagnosis (1) Chronic hypertension in obstetric context in third trimester: Code(s): O10.913 - Unspecified pre-existing hypertension complicating , third trimester Status: Acute (2) Breech presentation: Code(s): O32.1XX0 - Maternal care for breech presentation, not applicable or unspecified Status: Acute OB - DS: Summary OB Procedures : Ultrasound OB Procedures Intrapartum: OB Procedures: : None Peripartum Data Procedures: Procedures Operation Date: 12/06/19 11:45 Actual Procedures Side Surgeon p Section Leon Mistry MD Time Spent with Patient Time attestation: Total time spent providing and/or coordinating discharge services: DS: Data Data Completed and Pending Completed studies during hospitalization: Pending at discharge 12/06/19 12:14 Surgical [PTH] Routine Discharge Plan Discharge Attending physician on discharge: Leon Mistry Discharging Clinician: Leon Mistry Anticipated Discharge Date/Time: 12/08/19 15:57 Patient Disposition: Home, Self-Care Activity: may drive after 2 weeks and pelvic rest Diet: low sodium Wound Care Instructions: other - see discharge instructions Discharge Instructions: Call if fever, or redness or drainage from incision. Call if saturating more than a pad an hour. Take prescribed medication as needed for pain. May take over the counter Ibuprofen or Tylenol. Take Labetolol as previously prescribed. Education: Mom and Baby Guide Given to: Mother Follow-Up: Call your delivering provider's office for an appointment to be seen in: Call MD for appointment Mom and baby should come to the [facility] for the follow-up appointment. Appointment Date/Time: December 09, 2019 at 8:00 am What to expect at your follow-up visit: Physical Assessment Call [phone] if you are unable to keep your appointment time. BREAST CARE: 1. Wear a snug supportive bra. 2. For engorgement discomfort: Breast Feeding: A. Apply warm moist washcloths B. Express milk as needed to relieve engorgement C. Wear loose clothing 3. For sore nipples: A. Identify correct latch-on B. Apply warm moist washcloths before and after nursing C. Air dry nipples after nursing D. May apply Lansinoh cream to nipples ABDOMINAL INCISION: 1. Allow incision to air dry 2. Do NOT use lotions for powders on your incision 3. When showering, allow soap and water to run over the incision, but do not wash incision PERINEAL CARE: 1. Until bleeding stops, use your beba bottle after urinating 2. Change your pad frequently throughout the day 3. No tub baths until seen by your physician - You may shower ACTIVITY: 1. Rest as much as possible. 2. Do not exercise or lift anything heavier than your baby (such as laundry or other children.) 3. Avoid stairs or driving as much as possible. 4. Do not put anything into the vagina. No douching, tampons, or sexual activity until seen by physician. NOTIFY PHYSICIAN IF YOU HAVE ANY QUESTIONS OR IF ANY OF THE FOLLOWING SYMPTOMS OCCUR: 1. If your incision becomes red, swollen, or more painful than what you have experienced in the hospital. 2. If your vaginal bleeding becomes foul smelling. 3. If your vaginal bleeding becomes more heavy than a period or if your bleeding changes from pink to bright red. However, you may pass an occasional walnut-sized clot once or twice for the first week . 4. If you experience a sharp, shooting pain in you calves. 5. If you discover a hard, reddened area on your breast or if you experience flu-like symptoms. DIET: 1. Eat regular, well-balanced meals. 2. Drink plenty of fluids daily. If breastfeedi
== END 2019-12-08 15:40 | disposition home or self-care (01) | DRG 787 ==
LOC: ANHLDR 18:01 → ANHOB2 12-06 15:10
PROVIDERS: Admitting Provider Obstetrics & Gynecology; PCP Internal Medicine; Visit Provider Obstetrics & Gynecology
PROC: 10D00Z1 Extraction of Products of Conception, Low, Open Approach (ICD-10-PCS; CPT 59514; principal; 2019-12-06 11:45)
DX: O10.92 Unspecified pre-existing hypertension complicating childbirth (principal); O98.32 Other infections with a predominantly sexual mode of transmission complicating childbirth; Z37.0 Single live birth; Z3A.38 38 weeks gestation of pregnancy; O32.1XX0 Maternal care for breech presentation, not applicable or unspecified; O99.214 Obesity complicating childbirth; E66.01 Morbid (severe) obesity due to excess calories; O99.62 Diseases of the digestive system complicating childbirth; K21.9 Gastro-esophageal reflux disease without esophagitis; A63.0 Anogenital (venereal) warts
CPT/HCPCS: 36415; 85025; 86592; 86703; 86850; 86900; 86901; 87340; 88307; A9270; G0432; J0131; J1200; J1885; J2270; J2274; J2590; J7120

== ENCOUNTER 2019-12-12 12:46 | Outpatient (CLI) | payer BC, SELFPAY ==
[2019-12-12 13:15] VITALS: BP 130/88; PULSE 74
[2019-12-12 13:18] LABS: Basophils Absolute Auto 0.1 K/mm3 (0.0-0.1); Basophils Percent Auto 0.6 % (0.2-1.2); Eosinophils Absolute Auto 0.3 K/mm3 (0-0.3); Eosinophils Percent Auto 3.3 % (0-4.4); Hematocrit 30.7 % (37.0-47.0); Hemoglobin 9.6 g/dL (12.0-15.0); Immature Granulocyte Absolute 0.17 K/mm3 (0.00-0.031); Lymphocytes Absolute Auto 1.68 K/mm3 (0.9-3.2); Lymphocytes Percent Auto 19.3 % (18.3-44.2); Mean Corpuscular HGB Conc 31.3 g/dl (32-36); Mean Corpuscular Hemoglobin 25.3 pg (26-34); Mean Platelet Volume 9.9 fl (7.4-10.4); Monocytes Absolute Auto 0.5 K/mm3 (0.1-0.6); Monocytes Percent Auto 6.2 % (2.6-8.5); Neutrophils Percent Auto 68.6 % (45.5-73.1); Nucleated Red Blood Cells Perc 0.2 % (0.0-0.2); Platelet Count Result 277 k/mm3 (150-375); Red Blood Count 3.79 M/mm3 (4.2-5.4); Red Cell Distribution Width 13.9 % (11.5-14.5); White Blood Count 8.7 K/mm3 (4.5-10.0)
[2019-12-12 13:29] LABS: Alanine Aminotransferase 30 U/L (4-35); Albumin Level 3.7 g/dL (3.5-5.1); Alkaline Phosphatase 124 U/L (38-126); Aspartate Amino Transferase 28 U/L (14-36); Bilirubin,Total 0.2 mg/dL (0.2-1.3); Blood Urea Nitrogen 9 mg/dL (7-17); Calcium 8.4 mg/dL (8.4-10.2); Carbon Dioxide 24 mmol/L (22-30); Chloride 106 mmol/L (98-107); Estimated Glomerular Filt Rate > 60; Glucose 92 mg/dL (65-105); Potassium 3.8 mmol/L (3.4-5.0); Sodium 136 mmol/L (137-145); Uric Acid 5.7 mg/dL (2.5-7.5)
[2019-12-12 13:31] VITALS: BP 132/78; PULSE 61
--- NOTE | 2019-12-12 13:40 | PC.NURSE ---
Pt states that she has tightness in her calves. Homen's sign is negative. Called Dr. Mistry with labs and BPs. December D/C home.
== END 2019-12-12 13:40 | disposition home or self-care (01) ==
LOC: ANHOBOP 12:56 → ANHOBPP 12:56
PROVIDERS: Family Provider Obstetrics & Gynecology; PCP Internal Medicine; Visit Provider Obstetrics & Gynecology
DX: O13.9 Gestational [pregnancy-induced] hypertension without significant proteinuria, unspecified trimester (principal); Z3A.00 Weeks of gestation of pregnancy not specified
CPT/HCPCS: 36415; 80053; 84550; 85025; 99199

== ENCOUNTER 2021-03-18 12:40 | Observation (INO) | payer BC, SELFPAY ==
[2021-03-18] VITALS (12 sets, daily range): BP systolic 117–136; BP diastolic 64–78; PULSE 72–82
--- NOTE | 2021-03-18 16:01 | OBADM ---
This patient, Sejal Lopez, admitted to the OB room OB Post 117 for observation. Patient/family oriented to hospital policies and general routines including ID bracelet, bed and alarms, visiting hours, pain management, procedures, bathroom and other care routines, personal items, smoking policy, room service/diet, and visiting hours. Patient/Family are encouraged to report perceived risks to care and to ask questions if they do not understand what they are told or what they should do.
--- NOTE | 2021-04-09 06:38 | PM.OBTRLD ---
OB - Triage/Final Diagnosis Visit Information Comments/Additional reasons for admission: I have assessed the risk for this patient, Sejal Lopez, and determined that she would benefit from observation care. Final Diagnosis (1) Early decelerations on heart rate tracing: Status: Acute
== END 2021-03-18 16:15 | disposition home or self-care (01) ==
PROVIDERS: Admitting Provider Obstetrics & Gynecology; PCP Internal Medicine; Visit Provider Obstetrics & Gynecology
DX: O36.8330 Maternal care for abnormalities of the fetal heart rate or rhythm, third trimester, not applicable or unspecified (principal); Z3A.34 34 weeks gestation of pregnancy
CPT/HCPCS: G0378; G0379

== ENCOUNTER 2021-03-22 07:35 | Outpatient (RCR) | payer BC, SELFPAY ==
[2021-03-19 11:15] VITALS: BP 119/72; PULSE 80
--- NOTE | ~2021-03-22 | US_ITS ---
EXAMINATION: US OB limited DATE: 03/22/2021 09:16 INDICATION: Chronic hypertension. Third trimester. TECHNIQUE: Real-time ultrasound of the pelvis was performed. COMPARISON: Ultrasound 03/19/2021 FINDINGS: There is a single fetus in vertex presentation. The placenta is anterior. heart rate is 144 be ats per minute (bpm). The amniotic fluid index is 13.2 cm, which is normal. IMPRESSION: 1. Single living fetus in vertex presentation. 2. Normal amniotic fluid index. Reviewed, dictated and finalized at location A.
--- NOTE | ~2021-03-22 | US_ITS ---
EXAMINATION: US OB BPP wo non-stress DATE: 03/19/2021 11:13 INDICATION: Abnormal biophysical profile during third trimester TECHNIQUE: Real-time pelvic ultrasound was performed. The interpreting radiologist was not present fo r the study. COMPARISON: 11/28/2019 FINDINGS: There is a single living fetus in breech presentation. The placenta is anterior. heart rate is 136 beats per minute (bpm). Biophysical profile performed by the technologist: breathing (30 sec sustained breathing in 30 minutes): 2 out of 2 movement (3 gross body movements in 30 minutes): 2 out of 2 tone (one episode of myllglb-fvgammvly-xjtkxzn limb movement): 2 out of 2 Amniotic fluid pocket (2 cm): 2 out of 2 Total score: 8 out of 8 IMPRESSION: 1. Single living fetus in breech presentation. 2. Biophysical profile 8 out of 8. Reviewed, dictated and finalized at location B.
[2021-03-22 09:31] VITALS: BP 111/63; PULSE 92
== END 2021-04-24 10:03 | disposition home or self-care (01) ==
LOC: ANHOBOP 07:35
PROVIDERS: PCP Internal Medicine; Visit Provider Obstetrics & Gynecology
DX: O26.893 Other specified pregnancy related conditions, third trimester (principal); Z3A.34 34 weeks gestation of pregnancy; O16.3 Unspecified maternal hypertension, third trimester; Z3A.35 35 weeks gestation of pregnancy
CPT/HCPCS: 59025; 76815; 76819

== ENCOUNTER 2021-04-16 04:57 | Inpatient (IN) | payer BC, SELFPAY ==
--- NOTE | 2021-03-27 15:19 | PC.NURSE ---
VERIFIED WITH OR SCHEDULE AND PATIENT--C/S ON 04/16/21 AT 0730 WITH TUBAL LIGATION PATIENT INSTRUCTED TO COME TO OB ON 04/15/21 FOR PRE-OP LAB DRAW ON COME IN AT 0515 THE MORNING OF SURGERY FOR LAB DRAW
[2021-04-16] VITALS (62 sets, daily range): BP systolic 58–129; BP diastolic 17–95; PULSE 52–73; RESP 13–20; TEMP 36.1–36.7; O2SAT 95–99; BMI 37.7
--- NOTE | 2021-04-16 04:57 | LDADM ---
This patient, Sejal Lopez, was admitted to Labor/Delivery/Recovery 120 on 04/16/21 at 04:57. Plans for labor, pain management and were discussed with patient. Patient/family oriented to hospital policies and general routines including ID bracelet, bed and alarms, visiting hours, pain management, procedures, bathroom and other care routines, personal items, smoking policy, room service/diet and guest tray routines, security routines, and visiting hours. Patient/Family are encouraged to report perceived risks to care and to ask questions if they do not understand what they are told or what they should do. See OBIX for further documentation.
[2021-04-16] MEDS: LACTATED RINGERS 1,000 ML 999 ML IV CONT (05:32)
[2021-04-16 05:40] LABS: Basophils Absolute Auto 0.1 K/mm3 (0.0-0.1); Basophils Percent Auto 0.7 % (0.2-1.2); Eosinophils Absolute Auto 0.1 K/mm3 (0-0.3); Eosinophils Percent Auto 1.4 % (0-4.4); Hematocrit 32.5 % (37.0-47.0); Immature Granulocyte Absolute 0.02 K/mm3 (0.00-0.031); Immature Granulocyte Percent A 0.3 % (0-0.5); Lymphocytes Percent Auto 25.1 % (18.3-44.2); Mean Corpuscular HGB Conc 30.8 g/dl (32-36); Mean Corpuscular Hemoglobin 22.9 pg (26-34); Mean Corpuscular Volume 74.4 fl (80-100); Mean Platelet Volume 10.5 fl (7.4-10.4); Monocytes Absolute Auto 0.4 K/mm3 (0.1-0.6); Monocytes Percent Auto 5.7 % (2.6-8.5); Neutrophils Absolute Auto 4.8 K/mm3 (1.3-6.7); Neutrophils Percent Auto 66.8 % (45.5-73.1); Platelet Count Result 213 k/mm3 (150-375); Red Blood Count 4.37 M/mm3 (4.2-5.4); Red Cell Distribution Width 14.6 % (11.5-14.5); White Blood Count 7.2 K/mm3 (4.5-10.0)
[2021-04-16 05:55] LABS: Alanine Aminotransferase 16 U/L (4-35); Albumin Level 3.5 g/dL (3.5-5.1); Alkaline Phosphatase 132 U/L (38-126); Anion Gap 6 mmol/L (8-16); Aspartate Amino Transferase 20 U/L (14-36); Bilirubin,Total 0.1 mg/dL (0.2-1.3); Blood Urea Nitrogen 5 mg/dL (7-17); Calcium 8.5 mg/dL (8.4-10.2); Carbon Dioxide 21 mmol/L (22-30); Chloride 108 mmol/L (98-107); Estimated CRCL calculation 136 ml/min; Estimated Glomerular Filt Rate > 60; Glucose 95 mg/dL (65-110); Potassium 3.6 mmol/L (3.4-5.0); Sodium 135 mmol/L (137-145)
--- NOTE | 2021-04-16 06:33 | WPDANESEPPF ---
Anes - Initial Pre Proc Eval Procedure: Operation Date: 04/16/21 07:30 Proposed Procedures p Repeat Section with Bilateral Tubal Ligation - Leon Mistry MD Date/Time: 04/16/21 06:33 Surgeon: Leon Mistry MD Pre Op Diagnosis: Patient Data Age: 35 Gender: F Height: 1.68 m Weight: 106 kg Last Vital Signs Pulse 73 04/16/21 06:02 BP 125/71 04/16/21 06:02 Allergies Allergy/AdvReac Type Severity Reaction Status Date / Time PCN Allergy Unknown AN Uncoded 04/11/21 08:24 Home Medications Medication Instructions Recorded Confirmed Type prenat.vits,shaneka,ypz-tkih-nvdyv 1 tablet PO DAILY 01/17/20 04/16/21 History calcium carb-vit D3-magnesium 250 2 cap PO DAILY 01/26/20 04/16/21 History mg-200 unit-125 mg capsule labetalol 100 mg tablet 100 mg PO Q12H #180 tablet 12/31/20 04/16/21 Rx cholecalciferol (vitamin D3) 25 mcg PO BID 03/27/21 04/16/21 History [Vitamin D3] Laboratory Tests 04/16/21 04/16/21 04/16/21 05:33 05:33 05:33 WBC 7.2 K/mm3 K/mm3 (4.5-10.0) RBC 4.37 M/mm3 M/mm3 (4.2-5.4) Hgb 10.0 g/dL L g/dL (12.0-15.0) Hct 32.5 % L % (37.0-47.0) MCV 74.4 fl L fl (80-100) MCH 22.9 pg L pg (26-34) MCHC 30.8 g/dl L g/dl (32-36) RDW 14.6 % H % (11.5-14.5) Plt Count 213 k/mm3 k/mm3 (150-375) MPV 10.5 fl H fl (7.4-10.4) Immature Gran % (Auto) 0.3 % % (0-0.5) Neut % (Auto) 66.8 % % (45.5-73.1) Lymph % (Auto) 25.1 % % (18.3-44.2) Woodruff % (Auto) 5.7 % % (2.6-8.5) Eos % (Auto) 1.4 % % (0-4.4) Baso % (Auto) 0.7 % % (0.2-1.2) Lymph # (Auto) 1.80 K/mm3 K/mm3 (0.9-3.2) [place]ruff # (Auto) 0.4 K/mm3 K/mm3 (0.1-0.6) Eos # (Auto) 0.1 K/mm3 K/mm3 (0-0.3) Baso # (Auto) 0.1 K/mm3 K/mm3 (0.0-0.1) Abs Immat Gran (auto) 0.02 K/mm3 K/mm3 (0.00-0.031) Absolute Neuts (auto) 4.8 K/mm3 K/mm3 (1.3-6.7) Absolute Nucleated RBC 0.0 K/mm3 K/mm3 (0.0-0.012) Nucleated RBC % 0.0 % % (0.0-0.2) Sodium 135 mmol/L L mmol/L (137-145) Potassium 3.6 mmol/L mmol/L (3.4-5.0) Chloride 108 mmol/L H mmol/L (98-107) Carbon Dioxide 21 mmol/L L mmol/L (22-30) Anion Gap 6 mmol/L L mmol/L (8-16) BUN 5 mg/dL L mg/dL (7-17) Creatinine 0.60 mg/dL L mg/dL (0.7-1.0) Estim Creat Clear Calc 136 ml/min ml/min Estimated GFR > 60 (59 - ) Glucose 95 mg/dL mg/dL (65-110) Calcium 8.5 mg/dL mg/dL (8.4-10.2) Total Bilirubin 0.1 mg/dL L mg/dL (0.2-1.3) AST 20 U/L U/L (14-36) ALT 16 U/L U/L (4-35) Alkaline Phosphatase 132 U/L H U/L (38-126) Total Protein 7.0 g/dL g/dL (6.3-8.2) Albumin 3.5 g/dL g/dL (3.5-5.1) RPR Pending Patient hx anesthesia problems: none Family hx anesthesia problems: none PMFSH Past Medical History Medical History Acid reflux Breech presentation Chronic hypertension in obstetric context in third trimester History of induction of labor HPV (human papilloma virus) anogenital infection Hypertension Hypertension affecting in third trimester Surgical History Surgical History deliv NOS-unsp H/O LEEP Status post section [place] teeth removed Family History Family History Grandparent Diabetes mellitus Family history of lung cancer Family history of Hodgkin's lymphoma Hypertension Cerebrovascular accident Family history of malignant neoplasm of breast Mother Hypertension Social History Social History (Revi
--- NOTE | 2021-04-16 07:02 | PM.IMHP ---
H&P: HPI History of Present Illness Date/Time: 04/16/21 07:02 Patient at 38 weeks admitted for elective repeat ceserean section and bilateral tubal ligation. PNC significant for chronic hypertension which has been stable on labetolol. No headaches scotomata or RUQ pain. surveillance has been normal. She also has satisfied parity and desire for permanent sterilization. She has been counseled regarding risk benefits of trial of labor vs repeat ceserean section. Labs reviewed. GBS neg. Chief Complaint: Elective section. Review of Systems Review of Systems: All systems reviewed & are unremarkable except as noted in HPI and below Constitutional: Constitutional: Reports no additional constitutional complaints and Denies headache(s) Eyes: Eyes: Denies spots in vision ENT: Reports system reviewed and no additional complaints, except as documented and Denies headache(s) Cardiovascular: Cardiovascular: Denies chest pain and Denies dyspnea Respiratory: Respiratory: Denies dyspnea Gastrointestinal: Gastrointestinal: Reports no additional gastrointestinal complaints Genitourinary: Genitourinary: Reports amenorrhea Musculoskeletal: Musculoskeletal: Reports no additional musculoskeletal complaints Integumentary/Breasts: Skin/Breast: Denies rash Neurologic: Denies headache(s) Psychiatric: Psychiatric: Reports no additional psychiatric complaints PMF Past Medical History Medical History (Updated 04/16/21 @ 07:08 by Leon Mistry MD) Acid reflux Breech presentation Chronic hypertension in obstetric context in third trimester History of induction of labor HPV (human papilloma virus) anogenital infection Hypertension Hypertension affecting in third trimester Surgical History Surgical History deliv NOS-unsp H/O LEEP Status post section [place] teeth removed Family History Family History Grandparent Diabetes mellitus Family history of lung cancer Family history of Hodgkin's lymphoma Hypertension Cerebrovascular accident Family history of malignant neoplasm of breast Mother Hypertension Social History Social History Smoking status: Never smoker Second hand tobacco smoke exposure: No Alcohol intake: current Substance use: never Spiritual care concerns: No Meds Home Medications and Allergies Home Medications Medication Instructions Recorded Confirmed Type prenat.vits,shaneka,lwh-pokm-xmmqj 1 tablet PO DAILY 01/17/20 04/16/21 History calcium carb-vit D3-magnesium 250 2 cap PO DAILY 01/26/20 04/16/21 History mg-200 unit-125 mg capsule labetalol 100 mg tablet 100 mg PO Q12H #180 tablet 12/31/20 04/16/21 Rx cholecalciferol (vitamin D3) 25 mcg PO BID 03/27/21 04/16/21 History [Vitamin D3] Allergies Allergy/AdvReac Type Severity Reaction Status Date / Time PCN Allergy Unknown AN Uncoded 04/11/21 08:24 INFANT Vital Signs Vital Signs - 24 hr 04/16/21 06:02 Pulse Rate 73 Blood Pressure 125/71 Exam Const: General: no acute distress Eyes: General: appearance normal, both eyes and all related structures Resp: Effort & Inspection: normal respiratory effort Cardio: Rate: regular rate GI: Other: Gravid no fundal tenderness no right upper quadrant pain : External Female Exam: normal external appearance Speculum Exam - Vagina: normal appearance of the vagina Speculum Exam - Cervix: normal appearance of the cervix Skin: General skin exam: no rashes or lesions noted Neuro: Cognition (Neuro): normal cognition Extrem: General: normal to inspection Psych: Mental Status: mental status grossly normal H&P: Results Labs Labs: Short CBC 04/16/21 Range/Units 05:33 WBC 7.2 (4.5-10.0) K/mm3 Hgb 10.0 L (12.0-15.0) g/dL Hct 32.5 L (37.
--- NOTE | 2021-04-16 07:08 | WPDHPUPDATE1 ---
History and Physical Update Update Date/Time: 04/16/21 07:08 History and Physical has been reviewed, including an updated exam of the patient. There are NO changes in the patient's condition. Risks, benefits, and alternatives have been discussed and questions answered. Patient agrees to proceed with procedure.
[2021-04-16] MEDS: LACTATED RINGERS 1,000 ML 125 ML IV CONT ×2 (07:11→07:12)
[2021-04-16] MEDS: OXYTOCIN 30 UNITS/NS 500 ML 30 UNITS/500 ML BAG 125 UNITS IV CONT (09:05)
--- NOTE | 2021-04-16 09:06 | W.PM.PROC2 ---
Procedure Note - Detailed Date of Procedure 04/17/21 Pre-op Diagnosis 1. 2. Satisfied parity desires permanent sterilization Post-op Diagnosis same Procedure Performed 1. Repeat low transverse section 2. Bilateral tubal ligation Surgeon Leon Mistry MD Anesthesia spinal Indications patient desires elective repeat section. She has satisfied parity and desires tubal sterilization. She declines all other nonpermanent forms of control. Declines vasectomy. Findings Female . Normal fallopian tubes and ovaries bilaterally. Description of Procedure The patient was taken to the operating room where spinal anesthesia was administered and found to be adequate. The patient was prepped and draped in the usual sterile fashion in the dorsal supine position with a left-sotelo tilt. A Pfannenstiel skin incision was made along her prior Pfannestiel scar, with the scalpel and carried through to the underlying layer of fascia using the Bovie. The fascia was incised in the midline and extended laterally using Haque scissors. Juan José clamps were used to elevate the superior aspect of the fascial incision, which was elevated, and the underlying rectus musclesand scar tissue were dissected off bluntly and sharply using Haque scissors. Attention was then turned to the inferior aspect of the fascial incision, which in similar fashion was grasped with Juan José clamps, elevated, and the underlying rectus muscles were dissected off bluntly and sharply using Haque scissors. The rectus muscles were dissected in the midline. The peritoneum was bluntly dissected, entered, and extended superiorly and inferiorly with good visualization of the bladder. The bladder blade was inserted. The vesicouterine peritoneum was identified with pickups and entered sharply using Metzenbaum scissors. This incision was extended laterally and the bladder flap was created digitally. The bladder blade was reinserted. The lower uterine segment was incised in a transverse fashion using the scalpel and extended using manual traction. Clear amniotic fluid was noted. The infant was subsequently delivered atraumatically. The nose and mouth were bulb suctioned. The cord was clamped and cut. The was subsequently handed to the awaiting nursery nurse. Next, cord blood was obtained. The placenta was removed spontaneously intact with a 3-vessel cord noted. The uterus was exteriorized and cleared of all clots and debris. The uterine incision was repaired in 2 layers using 0 vicryl.. Hemostasis was visualized. The uterus was returned to the abdomen. Attention was turned to the right fallopian tube which was grabbed in the middle of the fallopian tube with a [place] then closed segment was then closed with 0 plain gut twice and then close segment was excised hemostasis at the segment sites obtained with cautery. Attention was then turned to the left fallopian tube which was grasped in the middle ampullary region of the fallopian tube and this segment was then closed twice with 2 sutures of 0 plain gut. The closed segment was excised hemostasis was obtained at the segments with cautery. The pelvis was copiously irrigated. The uterine and the ligation segments were examined and was noted to be hemostatic. the uterus was placed back into the abdomen. The tubal segments were visualized and noted to be hemostatic. Peritoneum was approximated with running 3 O Vicryl. The rectus muscles inspected and noted to be hemostatic.. The fascia was closed with 0 Vicryl, the subcutaneous layer was closed with 3-0 plain gut, and the skin was closed with dissolvable charley. Sponge, lap, and instrument counts were correct x3. The patient was stable at the completion of the procedure and was subsequently transferred to the recovery room in stable condition. Estimated Blood Loss -440.0 Urine Output 100 Drains No Packing No Pathology none sent Complications No immediate complications
[2021-04-16 10:30] LABS: Rapid Plasma Reagin Non-Reactive (NonReactive)
[2021-04-16] MEDS: OXYTOCIN 30 UNITS/NS 500 ML 30 UNITS/500 ML BAG 125 UNITS (10:46)
--- NOTE | 2021-04-16 11:20 | PC.NURSE ---
Patient transferred to post room #287 via stretcher. Support person present. Oriented to unit, room, information board, rooming in, admission packet and security measures. Patient verbalizes understanding.
[2021-04-16] MEDS: ONDANSETRON INJ 4 MG/2 ML VIAL IV PUSH ×2 (12:08→19:25)
[2021-04-16] MEDS: KETOROLAC 30 MG/ML VIAL (*BKC) IV PUSH ×2 (12:13→19:25)
--- NOTE | 2021-04-16 13:20 | PC.NURSE ---
Mother called out for assist with feeding, mother reports infant was awake and eager for first feeding and is concerned she is now sleepy. Reviewed this is normal behavior and normal to wake for feeding and stimulate to keep awake during the feedings . Demonstrated stimulation techniques to wake infant for feedings Infant is able to freely thrust tongue past gum ridge and flange both lips. Skin is intact on both nipples, no redness and bruising noted. Reviewed infant feeding cues, frequencies, duration of feedings, feeding elimination flow sheet, and signs of adequate intake. Assisted with infant to breast. Reviewed positioning/alignment in cross cradle, holding breast in ?U? hold and guided asymmetrical latch on. Discussed rational for each. Infant able to latch correctly. Reviewed signs of a correct latch, effective nursing and suck swallow ratio. Infant nursed eagerly, with steady draws and frequent swallowing noted. Reviewed the difference of effective vs ineffective nursing. Suggested mother stimulate while feeding to increase stimulation, increase intake and to assist with maintaining deep latch. was able to maintain latch without discomfort to mother. Demonstrated how to adjust latch more deeply while feeding if needed. Nipple care reviewed of lanolin after feedings, warm compresses as needed.
[2021-04-16] MEDS: diphenhydrAMINE HCl INJ 50 MG/ML VIAL 25 MG IV PUSH (13:43)
[2021-04-16] MEDS: DEXTROSE 5%/0.45% SOD CHL 1,000 ML 125 ML IV CONT (15:44)
[2021-04-16] MEDS: SIMETHICONE 80 MG TAB.CHEW PO (19:23)
[2021-04-16] MEDS: LABETALOL HCL 100 MG TABLET PO (21:00)
[2021-04-17] MEDS: IBUPROFEN 600 MG TABLET PO ×4 (02:10→22:10)
[2021-04-17] MEDS: HYDROcodone/acetaminophen (*CRX) 5-325 MG TABLET 1 TAB PO ×7 (02:10→22:10)
[2021-04-17 04:45] VITALS: BP 129/68; PULSE 67; RESP 16; TEMP 36.6
[2021-04-17 06:00] LABS: Basophils Percent Auto 0.3 % (0.2-1.2); Eosinophils Absolute Auto 0.1 K/mm3 (0-0.3); Eosinophils Percent Auto 1.2 % (0-4.4); Hematocrit 27.5 % (37.0-47.0); Hemoglobin 8.1 g/dL (12.0-15.0); Immature Granulocyte Absolute 0.04 K/mm3 (0.00-0.031); Immature Granulocyte Percent A 0.4 % (0-0.5); Lymphocytes Absolute Auto 1.47 K/mm3 (0.9-3.2); Mean Corpuscular HGB Conc 29.5 g/dl (32-36); Mean Corpuscular Hemoglobin 22.1 pg (26-34); Mean Corpuscular Volume 75.1 fl (80-100); Mean Platelet Volume 10.6 fl (7.4-10.4); Monocytes Absolute Auto 0.4 K/mm3 (0.1-0.6); Monocytes Percent Auto 4.7 % (2.6-8.5); Neutrophils Absolute Auto 7.1 K/mm3 (1.3-6.7); Neutrophils Percent Auto 77.4 % (45.5-73.1); Platelet Count Result 188 k/mm3 (150-375); Red Blood Count 3.66 M/mm3 (4.2-5.4); Red Cell Distribution Width 14.6 % (11.5-14.5); White Blood Count 9.2 K/mm3 (4.5-10.0)
[2021-04-17 08:25] VITALS: BP 108/68; PULSE 72; RESP 16; TEMP 36.7; O2SAT 99
--- NOTE | 2021-04-17 08:39 | WPDANLDPN2 ---
Anes-Prog Note L&D Date/Time: 04/17/21 08:39 Comfortable throughout: section Neuraxial method: spinal Epidural/Spinal procedure site: clean & non-tender Neuro status: Neuro function grossly intact. Cardiovascular status: normal Respiratory status: normal Airway patency: baseline Mental status: baseline Post-Op hydration status: normal Vital Signs: Last Vital Signs Temp 36.6 C 04/17/21 04:45 Pulse 67 04/17/21 04:45 Resp 16 04/17/21 04:45 BP 129/68 04/17/21 04:45 Pulse Ox 98 04/16/21 15:30 Pain score (VAS): 3 I/O: Intake & Output 04/16/21 04/17/21 04/17/21 23:59 07:59 15:59 Intake Total 2000 1000 Output Total 900 1400 Balance 1100 -400 Post-procedural complaints: none Patient feedback: Patient satisfied with anesthetic care.
--- NOTE | 2021-04-17 08:39 | WPDANLDNPN2 ---
Anes-Prog Note L&D-Neuraxial Date/Time: 04/17/21 08:39 Neuraxial medications: intrathecal PF morphine Opiod-related complaints: none Patient feedback: Patient satisfied with post-operative pain management.
[2021-04-17 08:48] VITALS: PULSE 68
[2021-04-17] MEDS: LABETALOL HCL 100 MG TABLET PO ×2 (08:48→22:10)
[2021-04-17] MEDS: DOCUSATE SODIUM 100 MG CAPSULE PO ×2 (08:48→15:53)
[2021-04-17] MEDS: POLYSACCHARIDE IRON COMPLEX 150 MG CAPSULE PO ×2 (08:48→15:55)
[2021-04-17] MEDS: MULTIVIT/MIN/PREN/FOL AC/IRON TABLET 1 TAB PO (08:49)
--- NOTE | 2021-04-17 09:15 | PC.NURSE ---
Mother called out for assist with feeding, reporting has been eagerly feeding most feeds, She did supplement once during the night, infant fed and did not satisfy and mother needed to rest. Infant is able to freely thrust tongue past gum ridge and flange both lips. Skin is intact on both nipples, no redness and bruising noted. Reviewed feeding cues, frequencies, duration of feedings, feeding elimination flow sheet, and signs of adequate intake. Demonstrated stimulation techniques to wake infant for feeding. Assisted with infant to breast. Reviewed positioning/alignment in cross cradle, holding breast in ?U? hold and guided asymmetrical latch on. Discussed rational for each. Several attempts before infant able to latch correctly she would only draw part of nipple in and then release latch. Reviewed signs of a correct latch, effective nursing and suck swallow ratio. nursed eagerly with steady draws and occasional swallowing noted followed with long pausing. Reviewed the difference of effective vs ineffective nursing. Suggested mother stimulate while feeding to increase stimulation, increase intake and to assist with maintaining deep latch. was on and off several times during this feeding. would slip to shallow latch, mother reports tenderness. Demonstrated how to adjust latch more deeply while feeding. Mother reports she can feel change in latch and has no tenderness. Nipple care reviewed of lanolin after feedings, warm compresses as needed.
--- NOTE | 2021-04-17 09:36 | PM.OBPNVD ---
OB - PN: Subj Subjective Date/time seen: 04/17/21 09:36 She has ambulated without problems. She has adequate pain control with medications. Tolerated regular food. No flatus. Mod lochia. The baby in latching well. No leg pain. OB - PN: Obj Data Labs CBC & Chem 7: 04/17/21 04:43 04/16/21 05:33 Labs: Laboratory Results - last 24 hr 04/16/21 04/17/21 05:33 04:43 WBC 9.2 RBC 3.66 L Hgb 8.1 L Hct 27.5 L MCV 75.1 L MCH 22.1 L MCHC 29.5 L RDW 14.6 H Plt Count 188 MPV 10.6 H Immature Gran % (Auto) 0.4 Neut % (Auto) 77.4 H Lymph % (Auto) 16.0 L Mcmullen % (Auto) 4.7 Eos % (Auto) 1.2 Baso % (Auto) 0.3 Lymph # (Auto) 1.47 Mcmullen # (Auto) 0.4 Eos # (Auto) 0.1 Baso # (Auto) 0.0 Abs Immat Gran (auto) 0.04 H Absolute Neuts (auto) 7.1 H Absolute Nucleated RBC 0.0 Nucleated RBC % 0.0 RPR Non-reactive OB - PN A/P Assessment and Plan (1) Delivery by elective section: Code(s): O82 - Encounter for delivery without indication Status: Acute Assessment and Plan: POD 1 s/p repeat c/s and tubal ligation. She is doing well. No hypovolemic symptoms. Continue routine post op care. Continue iron supplementation. Time Spent With Patient Time: Total time spent is greater than 50% in coordination of care (as documented) at patient's floor/unit and/or counseling patient: Exam Const: General: comfortable and no acute distress Resp: Effort & Inspection: normal respiratory effort GI: Other: fundus -3umb firm incision intact no drainage Extrem: General: normal to inspection Other: tr edema bilat nontender bilat Psych: Mental Status: mental status grossly normal Affect: normal affect
--- NOTE | 2021-04-17 11:05 | PC.NURSE ---
Patient transferred to post room #288 via [id number]. Support person present. Oriented to unit, room, information board, rooming in, admission packet and security measures. Patient verbalizes understanding.
[2021-04-17 18:30] VITALS: BP 117/68; PULSE 75; RESP 16; TEMP 36.8
[2021-04-18] MEDS: HYDROcodone/acetaminophen (*CRX) 5-325 MG TABLET 1 TAB PO ×3 (02:50→10:53)
[2021-04-18] MEDS: DOCUSATE SODIUM 100 MG CAPSULE PO (06:54)
[2021-04-18] MEDS: MULTIVIT/MIN/PREN/FOL AC/IRON TABLET 1 TAB PO (06:54)
[2021-04-18] MEDS: IBUPROFEN 600 MG TABLET PO (06:54)
[2021-04-18] MEDS: POLYSACCHARIDE IRON COMPLEX 150 MG CAPSULE PO (06:55)
[2021-04-18] MEDS: SIMETHICONE 80 MG TAB.CHEW PO (06:55)
[2021-04-18 07:10] VITALS: BP 103/51; PULSE 75; RESP 18; TEMP 37.1
--- NOTE | 2021-04-18 08:31 | PM.OBPNVD ---
OB - PN: Subj Subjective Date/time seen: 04/18/21 08:31 She has had flatus. Ambulating without difficulty. Patient comments: pain well controlled, tolerating diet and other (Decreasing lochia.) [place] baby status: doing well and nursing well OB - PN: Obj Data Labs CBC & Chem 7: 04/17/21 04:43 04/16/21 05:33 OB - PN A/P Plan day: 2 Plan: discharge home and other Comments: Patient doing well. Follow up 2 weeks. Discharge instructions provided. Time Spent With Patient Time: Total time spent is greater than 50% in coordination of care (as documented) at patient's floor/unit and/or counseling patient: Time with patient: less than 15 minutes Exam Const: General: comfortable, no acute distress, alert and awake Eyes: General: appearance normal, both eyes and all related structures Resp: Effort & Inspection: normal respiratory effort GI: Other: fundus firm nontender -4,incision clean dry intact Skin: General skin exam: normal color Psych: Affect: normal affect Other: Abd: fundus firm below umbilicus, nontender Perineum: healing Ext: nontender
--- NOTE | 2021-04-18 08:33 | PM.OBDSVD ---
DS: Admitting Diagnosis Discharge Date Apr 18. Admitting Diagnosis 1. Elective repeat section 2. Undesired fertility desires permanent sterilization. 3. Chronic hypertension. DS: Discharge Diagnosis Discharge Diagnosis (1) Chronic hypertension affecting : Code(s): O10.919 - Unspecified pre-existing hypertension complicating , unspecified trimester Status: Acute (2) Delivery by elective section: Code(s): O82 - Encounter for delivery without indication Status: Acute (3) Encounter for sterilization: Code(s): Z30.2 - Encounter for sterilization Status: Acute OB - DS: Summary Hospital Course Hospital Course: Patient was admitted on April 16 for a planned elective repeat section and tubal ligation. She had an uncomplicated section and tubal ligation. Postoperatively patient did well. On postop day 1 she was ambulating had adequate pain control was tolerating regular food. She was . On postop day 2 she had positive flatus. Had adequate pain control was tolerating regular food and ambulating well. No hypovolemic symptoms. She was discharged home with discharge precautions on April 18. OB Procedures : NST and Ultrasound OB Procedures Intrapartum: and Tubal ligation OB Procedures: : None Peripartum Data Delivery Method: Section Procedures: Procedures Operation Date: 04/16/21 07:30 Actual Procedure Side Surgeon p Repeat Section with Bilateral Tubal Ligation Leon Mistry MD complications: none Status at Discharge Functional status at discharge: independent ambulation Time Spent with Patient Time attestation: Total time spent providing and/or coordinating discharge services: Exam Const: General: cooperative Orientation/consciousness: oriented to person, oriented to place and oriented to time HENMT: General nose exam: Normal external nose present Eyes: General: appearance normal, both eyes and all related structures Resp: Effort & Inspection: normal respiratory effort GI: Inspection: normal to inspection : Other: Incision clean dry and intact fundus -4 umbilicus firm nontender Skin: General skin exam: normal color Neuro: General: oriented to person, oriented to place and oriented to time Extrem: General: normal to inspection and no calf tenderness Psych: Appearance: grossly normal Mental Status: mental status grossly normal DS: Data Data Completed and Pending Pending studies at discharge: Pending at discharge 04/16/21 08:17 Surgical [PTH] Routine Discharge Plan Discharge Attending physician on discharge: Leon Mistry Consulting providers: Tatiana Umana Discharging Clinician: Leon Mistry Anticipated Discharge Date/Time: 04/18/21 08:39 Patient Disposition: Home, Self-Care Activity: may shower, no straining, may drive after 2 weeks and pelvic rest Diet: low sodium Discharge Instructions: she was instructed no lifting more than 10 lb. No driving for 2 weeks. Call if she has any fevers or saturating more than a pad an hour or any leg pain. Pelvic rest. She may take dnim-sfb-npfieip ibuprofen or Tylenol. She can take the prescription [place] for increased pain or breakthrough pain. Recommend stool softener. She was recommended to take an iron supplement daily. She was instructed to continue her labetalol twice a day. Due to call if she has severe headaches spots in her vision or persistent right upper quadrant pain. She is instructed to take her vitamins daily. Patient Instructions: Antibiotic Form Stand Alone Forms: General Discharge Information Follow-up/Referrals: Leon Mistry MD [Physician] - 2 Weeks Discharge Medications: New hydrocodone-acetaminophen 5-325 mg Tablet 1 tablet PO Q3H PRN (Reason: Moderate Pain (4-6)) Qty:
--- NOTE | 2021-04-18 09:00 | PC.NURSE ---
Patient was given the opportunity to view the discharge video Mother & Baby Care, The First Two Weeks and to ask questions. Patient declined viewing the video and has been given the mother/baby guide for home reference.
--- NOTE | 2021-04-18 09:10 | PC.NURSE ---
Mother reports she began using the nipple shield during the night, infant was unable to draw entire L nipple in and mother had difficulties and pain with latching. Mother will use shield for both breasts at this time. Discussed weaning techniques from shield. Reviewed nipple shield precautions and possible complications. Instructions given on application and cleaning of shield. Patient able to return demonstration on proper application of shield. Discussed the need to initiate pumping if continues to nurse with the shield. Patient verbalizes understanding. Mother will supplement after feedings if she feels infant is not satisfied. Mother has a double electric pump for home use and is comfortable with use. Mother reports using nipple shield for several months with first child, she was able to stop supplement once her milk came in. Observed mother is able to independently latch with appropriate positioning/alignment using nipple shield. She denies any nipple discomfort, is feeding as required and waking to feed if needed. Infant has had several effective feedings now followed with supplementation by mother's choice. is currently meeting outcomes for weight, output, and feeding frequencies. is more awake and eager to feed today. Discussed increasing supplementation as requires to satisfactions. Reviewed paced feeding and suggested to stop when infant is satisfied, as long as is having required output. With increased supplementation may not want to feed for 4 hours. Mother will continue to pump on feeding schedule and will increase session to 20 minutes if pumping every 4 hours. Reviewed once mother?s milk is established and infant is effectively feeding may have increased intake with nursing. If infant is effective feeding with long draws and frequent swallowing noted , may be ready to decrease/discontinue supplementation. Advised not to discontinue supplement until ICP, Follow-Up RN or LC has a pre/post weighted evaluation of infant feeding. Reviewed transition to breast milk, signs of adequate intake, and engorgement/relief. Instructed to call ICP if intake/output less than required. Reviewed regular medications mother is taking. Information provided per [place]. Reviewed community resources on the [facility] website and in the Mom/Baby guide. Information on outpatient services provided. Mother has no further questions at this time.
[2021-04-18 09:30] VITALS: PULSE 71
[2021-04-18] MEDS: LABETALOL HCL 100 MG TABLET PO (09:30)
[2021-04-18 09:40] VITALS: BP 91/44; PULSE 73; RESP 16
[2021-04-18 10:05] VITALS: BP 96/57; PULSE 73
--- NOTE | 2021-04-18 11:15 | PC.NURSE ---
Self care and infant care discharge instructions given including follow up visit date and time. Pt. verbalized understanding. No questions or concerns voiced. Very pleasant and cooperative.
[2021-04-18 12:00] VITALS: BP 114/67; PULSE 68
--- NOTE | 2021-04-18 12:16 | PC.NURSE ---
Instructed pt. per Dr. Mistry order, take blood pressure before taking Labetalol. If diastolic, or bottom number, is less than 60 then do not take that dose of medication. Take blood pressure before each dose. Pt. verbalized understanding.
[2021-04-19 11:28] VITALS: BP 117/76; PULSE 65; RESP 20; TEMP 37.1; O2SAT 100
== END 2021-04-18 12:20 | disposition home or self-care (01) | DRG 784 ==
LOC: ANHLDR 05:04 → ANHOB2 11:42
PROVIDERS: Admitting Provider Obstetrics & Gynecology; PCP Internal Medicine; Visit Provider Obstetrics & Gynecology
PROC: 10D00Z1 Extraction of Products of Conception, Low, Open Approach (ICD-10-PCS; CPT 59514; principal; 2021-04-16 07:30)
DX: O34.211 Maternal care for low transverse scar from previous cesarean delivery (principal); O10.92 Unspecified pre-existing hypertension complicating childbirth; Z30.2 Encounter for sterilization; Z3A.38 38 weeks gestation of pregnancy; Z37.0 Single live birth
CPT/HCPCS: 36415; 80053; 85025; 86592; 86850; 86900; 86901; 88302; 88307; A9270; J0131; J1200; J1885; J2274; J2405; J2590; J7120

== ENCOUNTER 2021-05-31 09:37 | Outpatient (CLI) | payer BC, SELFPAY ==
[2021-05-31 09:48] LABS: Hemoglobin 12.4 g/dL (12.0-15.0); Mean Corpuscular HGB Conc 30.2 g/dl (32-36); Mean Corpuscular Hemoglobin 23.6 pg (26-34); Mean Corpuscular Volume 77.9 fl (80-100); Mean Platelet Volume 10.4 fl (7.4-10.4); Platelet Count Result 239 k/mm3 (150-375); Red Blood Count 5.26 M/mm3 (4.2-5.4); Red Cell Distribution Width 17.7 % (11.5-14.5); White Blood Count 6.2 K/mm3 (4.5-10.0)
== END 2021-05-31 09:38 | disposition home or self-care (01) ==
LOC: ANHLAB 09:39
PROVIDERS: PCP Internal Medicine; Visit Provider Obstetrics & Gynecology
DX: Z86.2 Personal history of diseases of the blood and blood-forming organs and certain disorders involving the immune mechanism (principal)
CPT/HCPCS: 36415; 85027

== ENCOUNTER → 2021-09-06 08:39 | Outpatient (CLI) | payer BC, SELFPAY ==
[2021-09-06 18:24] LABS: SARS-CoV-2 RNA PCR Positive
== END ==
PROVIDERS: PCP Internal Medicine; Visit Provider Nurse Practitioner
DX: U07.1 COVID-19 (principal); J02.9 Acute pharyngitis, unspecified
CPT/HCPCS: C9803; U0003; U0005

== ENCOUNTER → 2021-12-27 08:00 | Outpatient (CLI) | payer BC, SELFPAY ==
[2021-12-27 16:55] LABS: SARS-CoV-2 RNA PCR Negative
== END ==
PROVIDERS: PCP Internal Medicine; Visit Provider Nurse Practitioner
DX: R05.9 Cough, unspecified (principal); Z20.822 Contact with and (suspected) exposure to COVID-19
CPT/HCPCS: C9803; U0003; U0005

== ENCOUNTER 2023-06-16 09:07 | Outpatient (CLI) | payer BC, SELFPAY ==
--- NOTE | 2023-06-23 21:09 | WPDHOMESLEEP ---
Sleep Study - Home Unattended Date of Study: 06/16/23 Ordering Provider: Soumya Cox DO Interpreting Provider: Soumya Cox DO Home Sleep Study Type: Watch PAT Height: 1.68 m Weight: 102.058 kg Body Mass Index: 36.3 Neck Circumference (inches): 14 [place]: 1 Reason for Sleep Study Loud snoring Sleep History The patient is a 37-year-old female with hypertension that had a sleep study ordered for evaluation of sleep apnea. The patient denies awakening from sleep short of breath. She rarely awakens night with heartburn, belching or cough. She frequently snores loudly enough that others complain. She constantly has trouble sleeping when she has a cold. She denies waking up gasping for air throughout the night. She rarely has breathing problems at night observed by herself or others. She rarely sweats excessively at night. She rarely has heart palpitations or irregular heartbeats during the night. She denies falling asleep during the day and while driving. She denies sleep paralysis, cataplexy and hypnagogic / hypnopompic hallucinations. She denies feeling afraid of going to sleep. She rarely has nightmares and rarely remembers her dreams. She rarely has thoughts racing through her mind. She denies feeling sad or depressed. She rarely has anxiety. She rarely has muscular tension. She rarely notices parts of her body jerk. She rarely kicks during night. She rarely has crawling and aching feelings in legs and rarely has leg pain the night. He denies grinding her teeth during sleep and denies awakening with morning jaw pain. She denies being bothered by pain during the day and denies being awakened by pain during the night. She denies waking up feeling stiff in the morning. She denies waking up with sore achy muscles. She denies waking up with pain neck, spine or other joints. She goes to bed between 9-10 p.m. on both weekdays and weekends. She can fall asleep relatively quickly. She will wake up a couple times throughout the night that either urinate, let the dog out or rock her 2 kids. She is able to fall back asleep relatively quickly. She wakes up at 5:00 a.m. on weekdays and between 7-8 a.m. on the weekends. She typically gets 7-8 hours of sleep per night. She stays in bed less than 15 minutes after waking in the morning. She currently lives with her and 2 children. She denies consuming any caffeinated beverages within 2 hours of bedtime. She denies engaging in physical exercise before bedtime. She will read and watch television before falling asleep. She denies taking naps in the afternoon or the evening. She consumes 2-3 caffeinated beverages per day. She does consume alcoholic beverages. She denies tobacco and recreational drug use. [facility] Past Medical History Medical History Acid reflux Breech presentation delivery delivered Chronic hypertension in obstetric context in third trimester History of induction of labor HPV (human papilloma virus) anogenital infection Hypertension Hypertension affecting in third trimester Surgical History Surgical History deliv NOS-unsp H/O LEEP H/O tubal ligation Status post section [place] teeth removed Family History Family History Grandparent Diabetes mellitus Family history of lung cancer Family history of Hodgkin's lymphoma Hypertension Cerebrovascular accident Family history of malignant neoplasm of breast Mother Hypertension Social History Social History Smoking status: Never smoker Second hand tobacco smoke exposure: No Alcohol intake: current Substance use: never Lack of Transportation: No Lack of Food: Never True Current Housing: I Have Housing Conc
[2023-06-23 21:22] VITALS: BMI 36.3
== END 2023-06-17 07:00 | disposition home or self-care (01) ==
LOC: ANHCSM 09:08
PROVIDERS: PCP Internal Medicine; Visit Provider Family Medicine
DX: G47.9 Sleep disorder, unspecified (principal); R06.83 Snoring
CPT/HCPCS: 95800

== ENCOUNTER 2025-06-05 09:54 | Outpatient (CLI) | payer BC, SELFPAY ==
--- NOTE | ~2025-06-05 | XR_ITS ---
EXAMINATION: XR foot RT 2V, 06/05/2025 10:09 CDT HISTORY: pain x 3 months, intermittent pain, no inj, no surg COMPARISON: No comparisons available. Findings: No acute fracture or malalignment. No significant degenerative changes. Soft tissues unremarkable. Impression: No acute fracture or malalignment. Reviewed, dictated and finalized at location P. Impression: No acute fracture or malalignment.
== END 2025-06-05 09:55 | disposition home or self-care (01) ==
PROVIDERS: PCP Nurse Practitioner; Visit Provider Nurse Practitioner
DX: M79.671 Pain in right foot (principal)
CPT/HCPCS: 73620